=== PATIENT | male | born 1950 | race Caucasian/White ===

== ENCOUNTER 2024-01-13 06:32 | Outpatient (CLI) | payer MEDICARE, SELFPAY ==
--- NOTE | ~2024-01-13 | CT_ITS ---
CT of the Abdomen and Pelvis: Indication: Microscopic hematuria Technique: 2.5 mm axial scans were obtained through the abdomen and pelvis prior to and following in travenous administration of 130 cc of Omnipaque 350. Dose reduction technique was used on this scan b y utilizing automated exposure control and iterative reconstruction technique. The dose-length produc t (DLP) was 2337.14 mGy-cm. Findings: Scans through the lung bases are unremarkable. Inferior right hepatic lobe cyst present. Small calcified gallstone present. The spleen, pancreas, ad renals and kidneys are within normal limits. There are atherosclerotic calcifications of the aorta. No lymphadenopathy. No bowel obstruction or bowel wall thickening. There is no evidence to suggest acute appendicitis. Images through the pelvis were performed. Urinary bladder unremarkable. Prostate gland is significant ly enlarged. Small fat-containing left inguinal hernia present. Impression: Significantly enlarged prostate gland. No other significant abnormality of the system evident. Cholelithiasis. Small fat-containing left inguinal hernia. Reviewed, dictated and finalized at location . Impression: Significantly enlarged prostate gland. No other significant abnormality of the system evident. Cholelithiasis. Small fat-containing left inguinal hernia.
[2024-01-13 07:26] LABS: Estimated Glomerular Filt Rate 43
== END 2024-01-13 06:33 | disposition home or self-care (01) ==
LOC: ANHIMG 06:37
PROVIDERS: PCP Internal Medicine; Visit Provider Physician Assistant
DX: R31.29 Other microscopic hematuria (principal); K80.20 Calculus of gallbladder without cholecystitis without obstruction; K40.90 Unilateral inguinal hernia, without obstruction or gangrene, not specified as recurrent
CPT/HCPCS: 74178; Q9967